=== PATIENT | female | born 1975 | race African-American/Black ===

== ENCOUNTER 2021-08-04 13:24 | Emergency (ER) | payer OTHER, SELFPAY ==
--- NOTE | ~2021-08-04 | XR_ITS ---
EXAMINATION: XR lumbar spine 2-3V DATE: 08/04/2021 14:06 INDICATION: Lower extremity paresthesias TECHNIQUE: Anteroposterior and lateral views of the lumbar spine, and cone-down lateral view of the l umbosacral junction were obtained. COMPARISON: None. FINDINGS: There is no fracture, dislocation, or subluxation. The vertebral body heights, alignment, a nd intervertebral disc spaces are normal. The paravertebral soft tissues are unremarkable. Small dege nerative osteophytes project from the anterior endplates of multiple vertebral bodies. An IUD is note d. There are phleboliths in pelvis. A moderate volume IMPRESSION: 1. No acute osseous abnormality. Reviewed, dictated and finalized at location A.
--- NOTE | 2021-08-04 13:30 | ED.LOWEXIN ---
HPI - Extremity Injury (Lower) General Chief Complaint: Extremity Injury, Lower Stated Complaint: numbness in rt thigh Time Seen by Provider: 08/04/21 13:28 Source: patient Mode of arrival: ambulatory Limitations: no limitations History of Present Illness HPI Narrative: Ms. De La Cruz is a 45-year-old female patient presenting to the clinic today with complaints of right thigh numbness that began yesterday. She reports recently had nephrectomy laparoscopic surgery on Friday. Is still having a lot of gas in her abdomen as well as pain into her upper shoulder blades from the gas. Reports that the numbness started and is specifically to her right anterior thigh. Denies it traveling down her leg or into her groin. Also has a little tender area to the inguinal area on the right side with a small painful knot. She has not had a bowel movement since the surgery. Denies any known back problems however she has had issues with her hips in the past. She denies any urinary symptoms. She denies any nausea or vomiting but has not felt like eating. She denies any fever or chills. Related Data Home Medications Medication Instructions Recorded Confirmed bisacodyl [Dulcolax (bisacodyl)] 5 mg PO ONCE 08/04/21 08/04/21 Allergies Allergy/AdvReac Type Severity Reaction Status Date / Time No Known Allergies Allergy Verified 08/04/21 13:50 Review of Systems Review of Systems: Pertinent positives per HPI. Patient denies any fever, chills, rash, headache, visual changes, dizziness, cough, runny nose, sore throat, shortness of breath, chest pain, palpitations, nausea, vomiting, diarrhea, constipation, abdominal pain, or any urinary issues. PMFSH Comments At the time of my signature, I reviewed and agree with the nursing past medical, surgical, social, and family history. There is no relevant family history pertinent to the patient complaint. Exam Narrative: General: Well-developed, well nourished, in no apparent distress. Head: Normocephalic, atraumatic Cardio: Regular rate and rhythm, s1 and s2 normal, no murmur appreciated. Resp: Clear to auscultation bilaterally, no rhonchi, rales, wheezing or rubs. Abdomen: Soft, pliable, mildly distended, has 3 laparoscopic incisions without sign of infection, Steri-Strips covering incisions and these were not removed, mildly tender to palpation over surgical incisions, no CVAT tenderness Musculoskeletal: No deformity, change in sensation to the right anterior thigh that does not go below the knee-states this feels more dull when palpated, grossly normal range of motion, muscle strength strong and equal, warm to touch contralaterally, peripheral pulse strong, trace of lower extremity edema, no cyanosis, no redness or swelling to the surrounding area, normal gait and station Course Course Emergency Course: Portions of this record may have been created with voice recognition software. Level of Care: Express Care Visit Vital Signs Vital signs: Vital signs reviewed MDM - Extremity Injury (Lower) MDM Narrative Medical decision making narrative: Upon assessment patient resting comfortably in the exam chair. Reports that she just had left-sided nephrectomy on Friday done laparoscopically. She has 3 laparoscopic incisions to her abdomen. Reports that she started having numbness and tingling to the right anterior thigh last night. Reports that this area feels dull when touched. Also noted a very small knotted area to her right inguinal region that is somewhat tender. X-ray was completed to rule out disc herniation or complication of surgery. X-ray was negative for any acute osseous problem. Patient does have a large amount of stool and gas in her abdomen. May use MiraLAX as discussed I suspect that the patient possibly has mertalgia paresthetica due to increased intra-abdominal pressure from the gas of the laparoscopic surgery. Information about mertalgia paresthetica given to the patient and we will be co
[2021-08-04 13:39] VITALS: BP 123/80; PULSE 89; RESP 18; TEMP 36.6; O2SAT 100
== END 2021-08-04 14:34 | disposition home or self-care (01) ==
PROVIDERS: Emergency Provider Nurse Practitioner Family
DX: R20.2 Paresthesia of skin (principal); M19.90 Unspecified osteoarthritis, unspecified site; Z90.5 Acquired absence of kidney
CPT/HCPCS: 72100; 99203; G0463

== ENCOUNTER 2021-11-05 12:28 | Emergency (ER) | payer OTHER, SELFPAY ==
--- NOTE | ~2021-11-05 | XR_ITS ---
XR forearm LT 2V DATE: 11/05/2021 13:16 INDICATION: Fall. Left forearm and wrist injury, pain TECHNIQUE: AP and lateral views COMPARISON: None FINDINGS: Subtle minimally displaced linear fracture of the ulnar styloid process. No other fracture or dislocation is evident. Normal alignment at the elbow and wrist joints. IMPRESSION: Slightly displaced linear fracture of the ulnar styloid process Reviewed, dictated and finalized at location A.
--- NOTE | ~2021-11-05 | XR_ITS ---
XR wrist LT min 3V DATE: 11/05/2021 13:15 INDICATION: Trauma yesterday; fell, left forearm and wrist injury TECHNIQUE: 4 views of left wrist COMPARISON: 11/05/2021 left forearm FINDINGS: There is a linear slightly displaced fracture of the ulnar styloid process. No other fracture or dislocation of the left wrist is noted. IMPRESSION: Linear slightly displaced fracture of the ulnar styloid process Reviewed, dictated and finalized at location A.
[2021-11-05 12:42] VITALS: BP 124/88; PULSE 74; RESP 18; TEMP 36.6; O2SAT 99
--- NOTE | 2021-11-05 12:49 | ED.UPPEXIN ---
HPI - Extremity Injury (Upper) General Chief Complaint: Extremity Injury, Upper Stated Complaint: Lt Wrist Pain,Rt Arm and Hand Pain due to Fall Time Seen by Provider: 11/05/21 12:50 History of Present Illness HPI narrative: Pooja De La Cruz is a 45 yo female with PMH of traumatic brain injury, migraines, who was racing the daughter yesterday morning and fell, catching herself with her right hand and rolling onto her side she has an abrasion on her right forehead she has a abrasion and bruising of her right upper and lower arm but she states hit her hand left hand and arm hard when she was rolling and today she has pain with any kind of movement and tender to touch at the base of her hand going up to forearm with pain on medial side. She has had no headache no nausea or vomiting, abrasions are small and do not require cleaning - bruising to R upper arm,elbow Related Data Home Medications Medication Instructions Recorded Confirmed biotin 11/05/21 lactobacillus combination no.8 3 1 cell DAILY 11/05/21 11/05/21 billion cell capsule levonorgestrel 20 mcg/24 hours (7 1 device intrauterine ONCE 11/05/21 11/05/21 yrs) 52 mg intrauterine device (Mirena) rizatriptan 10 mg tablet (Maxalt) 10 mg PO ONCE 11/05/21 11/05/21 Allergies Allergy/AdvReac Type Severity Reaction Status Date / Time No Known Allergies Allergy Verified 11/05/21 13:04 Review of Systems Review of Systems: CONSTITUTIONAL: Denies fever, chills, sweats. EYES: Denies visual changes, redness, discharge. ENT: Denies rhinorrhea, congestion, sore throat, otalgia. CARDIOVASCULAR: Denies chest pain, palpitations, edema. RESPIRATORY: Denies dyspnea, wheezing, cough GASTROINTESTINAL: Denies abdominal pain, nausea, vomiting, diarrhea. GENITOURINARY: Denies dysuria, hematuria, abnormal discharge SKIN: Denies rash or itching. Multiple abrasions of the right arm and right side of head NEUROLOGIC: Denies numbness, or focal weakness. PSYCHIATRIC: Denies anxiety or depression. Left forearm and hand pain PMFSH Past Medical History Medical History TBI (traumatic brain injury) Social History Social History (Updated 11/05/21 @ 13:05 by Ning Truong CNP) Smoking status: Never smoker Alcohol intake: current Comments At time of signature, I agree with nursing past medical, surgical, social and family history. There is no relevant family history pertinent to the presenting complaint. Exam Narrative: GENERAL: This is a well-nourished, well-developed patient, in mild distress. HEAD: normocephalic, atraumatic. EYES: . Sclera clear/white. Vision is grossly intact. EARS: External ears normal,. Hearing grossly intact. NOSE: External nose normal without nasal discharge, nares without redness, no rhinorrhea. THROAT: Mucous membranes moist, NECK: Neck supple, CARDIOVASCULAR: Regular rate and rhythm without murmurs, gallops, or rubs. RESPIRATORY: Clear to auscultation. Breath sounds equal bilaterally. No wheezes, rales, or rhonchi. GASTROINTESTINAL: Not done SKIN: warm, intact with light abrasion to right forearm and upper arm and side of head NEURO: awake, alert, and oriented to person, place and time. There were no obvious focal neurologic abnormalities. Steady gait EXTREMITIES: Left forearm and hand pain cannot supinate hand and does poor finger opposition mild swelling; ecchymosis to R uppr arm, elbow BACK: Nontender without deformity Course Course Emergency Course: Patient comes for x-ray of left arm hand after fall yesterday while chasing daughter X-ray shows linear slightly displaced fracture base ulnar styloid process of the left arm no other fracture dislocation of the wrist noted placement of OCL on left forearm. OCL will be a sugar-tong neurovascularly intact prior to placement and post placement; hydrocodone for pain control; Patient referred to orthopedics Instruction on care for wrist fract
== END 2021-11-05 14:09 | disposition home or self-care (01) ==
PROVIDERS: Emergency Provider Nurse Practitioner
DX: S52.612A Displaced fracture of left ulna styloid process, initial encounter for closed fracture (principal); W19.XXXA Unspecified fall, initial encounter; S50.811A Abrasion of right forearm, initial encounter; S40.811A Abrasion of right upper arm, initial encounter; S00.81XA Abrasion of other part of head, initial encounter; Z87.820 Personal history of traumatic brain injury
CPT/HCPCS: 29125; 73090; 73110; 99214; A4565; G0463